=== PATIENT | male | born 1960 | race Two or more races ===

== ENCOUNTER → 2017-05-26 | Outpatient (CLI) | payer OTHER ==
[~2017-05-26] MED LIST: ASPIRIN81 M2 PO; ATORVASTATIN CA80 MG PO; BAYER ASPIRIN325 M1 PO; COREG6.25 MG PO; LISINOPRIL10 MG PO; PLAVIX PO; TASPRIN325 MG PO
--- NOTE | ~2017-05-26 | CT6 ---
[facility] of [facility] RADIOLOGY TEXT RESULTS PATIENT: BRENNEN BARRAGAN [facility] 56 UNIT #: [id number] AGE: [address]: Jason Doherty MD SEX: M ORDER DR: [id number] [facility] [address] [place], [place] [address] [id number] O MR#: [id number] Acc #: [id number] NAME: BRENNEN BARRAGAN : 1960 SEX: M STUDY DATE/TIME: 05/26/2017 13:53 UNIT: [facility] ROOM: STUDY DESCRIPTION: CT Abdomen WWo Cont Attending Physician: Jason Doherty M.D. Referring Physician: Jason Doherty M.D. Ordering Physician: Jason Doherty M.D. Primary Care Physician: Jason Doherty M.D. MEDICAL IMAGING REPORT This report is preliminary unless electronic signature is present EXAM Abdomen CT without and with contrast 05/26/2017. INDICATIONS 56-year-old male with history of aneurysm. Left-sided pain for 2 days. Bypass surgery. No history of malignancy. TECHNIQUE Noncontrast CT of the abdomen was performed followed by contrast-enhanced imaging. This CT exam was performed with one or more of the following radiation dose reduction techniques: automatic exposure control, adjustment of mA and/or kV according to patient size, and iterative reconstruction. COMPARISON We have no comparisons. FINDINGS NONCONTRAST CT ABDOMEN: Included lung bases clear. No effusion or pericardial effusion. Aorta demonstrates advanced atherosclerotic change. There is no aneurysm. What appear to represent renal vascular calcifications are present bilaterally. No suspicious calcifications elsewhere in the abdomen. CONTRAST-ENHANCED ABDOMEN: Aorta demonstrates no evidence of dissection. There are calcifications at the origins of the renal arteries, left greater than right, and there are calcifications at the origins of the celiac axis and SMA. Probable mild fatty infiltration of the liver. Spleen, adrenal glands, pancreas and gallbladder otherwise unremarkable along with the liver. Kidneys unremarkable. No periaortic fluid collection or inflammatory change. Bowel, including the visualized appendix, unremarkable. No [facility] of [facility] RADIOLOGY TEXT RESULTS PATIENT: BRENNEN BARRAGAN LOCATION: [facility] : 56 UNIT #: [id number] AGE: [address]: Jason Doherty MD SEX: M ORDER DR: suspicious bone lesion. IMPRESSION 1. There is atherosclerotic change of the aorta and major branch vessels arising from it, but no aortic aneurysm or dissection. 2. Renal vascular calcifications. 3. Mild fatty infiltration of the liver. 4. Normal appendix. Dictated by... Itz Bashir M.D. THIS IS AN ELECTRONICALLY VERIFIED REPORT Itz Bashir M.D. at 05/27/2017 6:37 AM Radha TD: 05/26/2017 18:28 JOB #: [id number] MEDICAL IMAGING REPORT Page 1 of 1 COPY
[2017-05-26 15:25] LABS: POC - CREATININE 0.88 mg/dL (0.64-1.27); POC - GFR >60.0 mL/min (>60)
== END | disposition home or self-care (01) ==
LOC: CCAT 14:03
PROVIDERS: Internal Medicine
DX: I70.0 Atherosclerosis of aorta (principal); I71.9 Aortic aneurysm of unspecified site, without rupture; K76.0 Fatty (change of) liver, not elsewhere classified; I70.1 Atherosclerosis of renal artery
CPT/HCPCS: 74170; 82565; Q9967